=== PATIENT | female | born 1955 | race Asian ===

== ENCOUNTER 2021-11-25 17:52 | Emergency (ER) | payer OTHER, MEDICAID ==
[~2021-11-25] VITALS: Ht 157.5 cm; Wt 63.5 kg
[2021-11-25 17:52] VITALS: BP_SYST 147
--- NOTE | 2021-11-25 17:55 | NUR ---
Patient to ER bed 5 for evaluation. Side rails up. Report given to Nat LINTON.
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
[2021-11-25] MEDS ORDERED: MORPHINE 2 MG/ML INJ. SYRINGE IVP ONE (18:30)
--- NOTE | 2021-11-25 18:30 | NUR ---
ER DR. HUITRON AT THE BEDSIDE EXAMINING PT
[2021-11-25 18:53] LABS: BASOPHILS % (AUTO) 0.4 % (0.0-2.0); EOSINOPHILS # (AUTO) 0.1 K/uL (0.0-0.4); HEMATOCRIT 39.2 % (36-48); HEMOGLOBIN 13.1 g/dL (12.0-16.0); LYMPHOCYTES # (AUTO) 0.9 K/uL (1.0-5.5); LYMPHOCYTES % (AUTO) 12.8 % (20.5-51.5); MEAN CORPUSCULAR HEMOGLOBIN 32 pg (27-31); MEAN CORPUSCULAR HGB CONC 33 % (32-36); MEAN CORPUSCULAR VOLUME 95 fL (79.0-98.0); MONOCYTES # (AUTO) 0.4 K/uL (0.0-1.0); NEUTROPHILS # (AUTO) 5.4 K/uL (1.8-7.7); NEUTROPHILS % (AUTO) 78.8 % (40.0-70.0); PLATELET COUNT (AUTO) 225 K/uL (130-430); RED BLOOD CELL COUNT(AUTO) 4.15 MIL/uL (4.2-6.2); RED CELL DISTRIBUTION WIDTH 13.4 % (9.0-15.0); WHITE BLOOD COUNT (AUTO) 6.8 K/uL (4.8-10.8)
--- NOTE | 2021-11-25 19:19 | NUR ---
REPORT GIVEN TO ROYER KIRAN FOR CONTINUING CARE
[2021-11-25 19:21] LABS: ALANINE AMINOTRANSFERASE 31 U/L (12-78); ALBUMIN 3.6 g/dL (3.4-4.8); AMYLASE 57 U/L (0-100); ANION GAP 9 (5-15); ASPARTATE AMINOTRANSFERASE 22 U/L (10-37); CALCIUM 9.2 mg/dL (8.4-11.0); CHLORIDE 106 mmol/L (98-107); CREATININE 0.66 mg/dL (0.55-1.30); GLUCOSE 113 mg/dL (70-99); LIPASE 132 U/L (73-393); POTASSIUM 3.9 mmol/L (3.5-5.1); SODIUM SERUM 138 mmol/L (136-145); UREA NITROGEN, BLOOD 27 mg/dL (8-21)
[2021-11-25 19:31] LABS: GFR AFRICAN AMERICAN 116 mL/min (>90)
[2021-11-25 19:34] LABS: TOTAL BILIRUBIN < 0.1 mg/dL (0.0-1.0)
--- NOTE | 2021-11-25 19:45 | NUR ---
Pt refuses morphine at this time.
--- NOTE | 2021-11-25 19:55 | NUR ---
Consent for CT with contrast obtained.
--- NOTE | 2021-11-25 20:00 | NUR ---
# 20 gauge angiocath placed to RAC. Use of asceptic technique. Opsite placed over site. Blood return noted. Flushed with 10 cc of normal saline. No evidence of infiltration noted. Patient tolerated well.
[2021-11-25] MEDS ORDERED: ONDANSETRON HCL 4 MG/2 ML VIAL ONE (20:07)
--- NOTE | 2021-11-25 20:12 | NUR ---
Pt medicated with Morphine 2 mg IVP and Zofran 4 mg IVP per MD order for c/o H/A at 01/10
--- NOTE | 2021-11-25 20:14 | NUR ---
Pt to CT via stretcher in stable condition, accompanied by daughter.
--- NOTE | 2021-11-25 20:30 | NUR ---
Pt returns from CT. Pain improved to 5/10. No needs verbalized at this time.
[2021-11-25] MEDS ORDERED: HYDR-3917 PO (20:56)
[2021-11-25] MEDS ORDERED: IBUP-1969 PO (20:56)
--- NOTE | 2021-11-25 21:40 | NUR ---
Patient given written and verbal discharge instructions and verbalizes understanding. ER MD discussed with patient the results and treatment provided. Patient in stable condition. ID arm band removed. IV catheter removed intact and dressing applied, no active bleeding. Rx of NORCO 5-325MG AND IBUPROFEN given. Patient educated on pain management and to follow up with PRIMARY DOCTOR IN 3 TO 5 DAYS. Opportunity for questions provided and answered. PT DISCHARGED IN STABLE CONDITION, AMBULATORY ACCOMPANIED BY DAUGHTER
== END 2021-11-25 21:55 | disposition home or self-care (01) ==
LOC: SED 17:52
DX: S13.4XXA Sprain of ligaments of cervical spine, initial encounter (principal); S20.219A Contusion of unspecified front wall of thorax, initial encounter; S30.1XXA Contusion of abdominal wall, initial encounter; S80.10XA Contusion of unspecified lower leg, initial encounter; V49.40XA Driver injured in collision with unspecified motor vehicles in traffic accident, initial encounter; Y93.89 Activity, other specified; Y92.89 Other specified places as the place of occurrence of the external cause; Y99.8 Other external cause status
CPT/HCPCS: 36415; 70450; 71260; 72125; 74177; 76376; 80053; 82150; 82550; 83690; 85025; 85610; 85730; 96374; 99285; J2270; J2405; Q9967; 96372; 99284